=== PATIENT | female | born 1990 | race Caucasian/White ===

== ENCOUNTER 2020-04-16 09:49 | Inpatient (IN) | payer OTHER ==
[~2020-04-16] VITALS: Ht 165.1 cm; Wt 86.3 kg
[2020-04-16] MEDS: LACTATED RINGERS 1,000 ML IV SCH ×5 (10:30→23:57)
[2020-04-16] MEDS ORDERED: NEWBORN KIT ONE (10:48)
[2020-04-16] MEDS ORDERED: MISOPROSTOL 200 MCG TABLET ONE (10:49)
[2020-04-16] MEDS ORDERED: LIDOCAINE 1%, 20ML ONE (10:49)
[2020-04-16] MEDS ORDERED: OXYTOCIN 30U/ 0.9% NaCL 500ML 500 ML ONE ×2 (10:49→21:46)
[2020-04-16 10:59] LABS: BASOPHILS % (AUTO) 1 % (0-1); EOSINOPHILS % (AUTO) 1 % (1-7); LYMPHOCYTES % (AUTO) 13 % (22-44); MEAN CORPUSCULAR HEMOGLOBIN 33.3 pg (27.0-34.8); MEAN CORPUSCULAR HGB CONC 33.7 g/dL (32.4-35.8); MEAN PLATELET VOLUME 8.7 fL (7.4-10.4); MONOCYTES % (AUTO) 5 % (2-9); NEUTROPHILS % (AUTO) 81 % (42-75); PLATELET COUNT 195 x10^3/uL (130-400); RED BLOOD COUNT 3.99 x10^6/uL (3.82-5.3); RED CELL DISTRIBUTION WIDTH 13.1 % (9.6-15.2)
[2020-04-16 11:00] LABS: MD NO
[2020-04-16] MEDS ORDERED: ONDANSETRON 2MG/ML, 2ML IVPush PRN (11:00)
[2020-04-16] MEDS ORDERED: OXYTOCIN 30U/ 0.9% NaCL 500ML 500 ML IV PRN ×2 (11:00→13:00)
[2020-04-16] MEDS ORDERED: TERBUTALINE 1 MG/ML, 1ML SQ PRN (11:00)
[2020-04-16] MEDS ORDERED: TERBUTALINE 1 MG/ML, 1ML IVPush PRN (11:00)
[2020-04-16] MEDS ORDERED: CALCIUM CARBONATE 500 MG TAB.CHEW PO PRN (11:00)
[2020-04-16] MEDS ORDERED: OXYTOCIN 30U/ 0.9% NaCL 500ML 500 ML IV ONE (11:00)
[2020-04-16] MEDS ORDERED: FENTANYL PF 100 MCG/2ML IVPush PRN (11:00)
[2020-04-16] MEDS ORDERED: FENTANYL PF 100 MCG/2ML IV PRN (11:00)
[2020-04-16] MEDS ORDERED: BUPIVACAINE 0.25% ONE (11:20)
[2020-04-16] MEDS ORDERED: FENTANYL/BUPIV./NS/PF 250 ML EPIDCONT ONE (11:20)
[2020-04-16] MEDS: D5%-LACTATED RINGERS 1,000 ML IV SCH ×2 (12:50→17:21)
[2020-04-16] MEDS ORDERED: PREN1TAB60 PO (16:57)
[2020-04-16] MEDS ORDERED: CARBOPROST TROMETHAMINE 250 MCG/ML, 1ML IM PRN (20:30)
[2020-04-16] MEDS ORDERED: DIPH,PERTUSS(ACELL),TET VAC/PF NC IM-VACC PRN (20:30)
[2020-04-16] MEDS ORDERED: SIMETHICONE 80 MG CHEW TAB PO PRN (20:30)
[2020-04-16] MEDS ORDERED: MISOPROSTOL 200 MCG TABLET PR PRN (20:30)
[2020-04-16] MEDS ORDERED: RHOGAM FROM BLOOD BANK 1 NOTE EA IM/IV ONE (20:30)
[2020-04-16] MEDS ORDERED: METHYLERGONOVINE 0.2 MG/ML IM PRN (20:30)
[2020-04-16] MEDS ORDERED: ACETAMINOPHEN 325 MG TABLET PO PRN ×2 (20:30)
[2020-04-16] MEDS: OXYTOCIN 30U/ 0.9% NaCL 500ML 500 ML IV SCH (21:49)
[2020-04-16 22:30] VITALS: BP 104/69
[2020-04-17] MEDS: IBUPROFEN 600 MG TABLET PO PRN ×4 (00:02→21:01)
[2020-04-17] MEDS: OXYcodone/APAP 5/325MG TABLET PO PRN ×7 (00:03→21:02)
[2020-04-17 03:42] VITALS: BP 97/66
[2020-04-17 04:47] LABS: BASOPHILS % (AUTO) 0 % (0-1); EOSINOPHILS % (AUTO) 1 % (1-7); LYMPHOCYTES % (AUTO) 16 % (22-44); MEAN CORPUSCULAR HEMOGLOBIN 33.8 pg (27.0-34.8); MEAN CORPUSCULAR HGB CONC 33.8 g/dL (32.4-35.8); MEAN PLATELET VOLUME 9.1 fL (7.4-10.4); MONOCYTES % (AUTO) 7 % (2-9); NEUTROPHILS % (AUTO) 76 % (42-75); PLATELET COUNT 145 x10^3/uL (130-400); RED BLOOD COUNT 3.25 x10^6/uL (3.82-5.3); RED CELL DISTRIBUTION WIDTH 13.1 % (9.6-15.2)
[2020-04-17 04:48] LABS: MD NO
[2020-04-17] MEDS: OXYTOCIN 30U/ 0.9% NaCL 500ML 500 ML IV SCH (05:54)
[2020-04-17 08:00] VITALS: BP 90/61
[2020-04-17] MEDS: DOCUSATE 100 MG CAPSULE PO PRN ×2 (08:12→21:01)
[2020-04-17] MEDS: PRENATAL VIT/IRON/FA 1 EACH TABLET PO SCH (08:12)
[2020-04-17 11:58] VITALS: BP 99/66
[2020-04-17 20:00] VITALS: BP 100/65
[2020-04-18] MEDS: OXYcodone/APAP 5/325MG TABLET PO PRN ×3 (01:14→10:51)
[2020-04-18] MEDS: IBUPROFEN 600 MG TABLET PO PRN (06:18)
[2020-04-18] MEDS ORDERED: OXYC1TAB14 PO (07:29)
[2020-04-18] MEDS ORDERED: IBUP-1222 PO (07:29)
[2020-04-18 08:45] VITALS: BP 92/59
[2020-04-18] MEDS: PRENATAL VIT/IRON/FA 1 EACH TABLET PO SCH (09:00)
[2020-04-18] MEDS: DOCUSATE 100 MG CAPSULE PO PRN (09:42)
== END 2020-04-18 11:21 | disposition home or self-care (01) | DRG 807 ==
LOC: LDOP 09:49 → LDIP 10:51 → 2NW 22:27
PROVIDERS: ADMIT Obstetrics & Gynecology; ATTEND Obstetrics & Gynecology
PROC: 10E0XZZ Delivery of Products of Conception, External Approach (ICD-10-PCS; principal; 2020-04-16)
PROC: 0KQM0ZZ Repair Perineum Muscle, Open Approach (ICD-10-PCS; 2020-04-16)
PROC: 3E0R3BZ Introduction of Anesthetic Agent into Spinal Canal, Percutaneous Approach (ICD-10-PCS; 2020-04-16)
PROC: 00HU33Z Insertion of Infusion Device into Spinal Canal, Percutaneous Approach (ICD-10-PCS; 2020-04-16)
DX: O69.81X0 Labor and delivery complicated by cord around neck, without compression, not applicable or unspecified (principal); Z37.0 Single live birth; O70.1 Second degree perineal laceration during delivery; Z3A.39 39 weeks gestation of pregnancy; Z20.822 Contact with and (suspected) exposure to COVID-19
CPT/HCPCS: 36415; J7121; 59025; 85025; 86592; 86850; 86900; 87635; G0378; J2590; J3010; J7120